=== PATIENT | female | born 1990 | race American Indian/Alaskan Native ===

== ENCOUNTER 2021-04-07 10:41 | Emergency (ER) | payer OTHER ==
[2021-04-07 11:02] VITALS: BP 111/73
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
== END 2021-04-07 13:49 | disposition home or self-care (01) ==
LOC: ED 10:41
DX: S13.4XXA Sprain of ligaments of cervical spine, initial encounter (principal); S46.911A Strain of unspecified muscle, fascia and tendon at shoulder and upper arm level, right arm, initial encounter; Z72.89 Other problems related to lifestyle; Z79.899 Other long term (current) drug therapy; Z98.890 Other specified postprocedural states; V89.2XXA Person injured in unspecified motor-vehicle accident, traffic, initial encounter; Y93.89 Activity, other specified; Y92.488 Other paved roadways as the place of occurrence of the external cause; Y99.8 Other external cause status
CPT/HCPCS: 72040; 99283